=== PATIENT | female | born 1990 | race Caucasian/White ===

== ENCOUNTER 2019-10-31 20:45 | Outpatient (REF) | payer MEDICAID, SELFPAY ==
[2019-10-31 21:12] LABS: Anion Gap 8.7 mmol/L (3-11); BUN 12 mg/dL (7-18); CO2 27.3 mmol/L (21.0-32.0); CREATININE 0.77 mg/dL (0.55-1.02); Calcium 8.5 mg/dL (8.5-10.1); Calculated LDL 97 mg/dL (<100); Chloride 103 mmol/L (98-107); Cholesterol 171 mg/dL (<200); Glucose 90 mg/dL (74-106); HDL Cholesterol 69 mg/dL (40-60); Potassium 4.5 mmol/L (3.5-5.1); Sodium 139 mmol/L (136-145); Triglyceride 28 mg/dL (<150)
== END 2019-10-31 21:05 ==
LOC: NCHCN 20:45
PROVIDERS: Visit Provider Nurse Practitioner Family
DX: R07.89 Other chest pain (principal)
CPT/HCPCS: 80048; 80061

== ENCOUNTER 2020-01-29 15:40 | Outpatient (REF) | payer MEDICAID, SELFPAY ==
[2020-01-29 21:25] LABS: TSH (W/Ref FT4) 2.37 uIU/mL (0.36-3.74)
== END 2020-01-29 16:00 ==
LOC: NCHCN 15:40
PROVIDERS: Visit Provider Nurse Practitioner Family
DX: R63.5 Abnormal weight gain (principal)
CPT/HCPCS: 84443

== ENCOUNTER 2022-01-22 10:00 | Emergency (ER) | payer MEDICAID, SELFPAY ==
[2022-01-22] VITALS (28 sets, daily range): BP systolic 99–165; BP diastolic 61–111; PULSE 67–103; RESP 11–23; TEMP 36.1; O2SAT 95–100
--- NOTE | 2022-01-22 10:00 | RT.EKG_ITS ---
APPROVED REPORT Exam: Resting ECG Reason for Exam: chest pain Patient Location: E HR:79 bpm ECG Measurements Heart Rate 79 AXIS HI 143 P 46 QRSd 84 QRS 35 QT 378 T 43 QTc 428 Conclusion Sinus rhythm...normal P axis, V-rate 60- 99 Atrial premature complexes...SV complexes w/ short R-R intvls
--- NOTE | 2022-01-22 10:15 | DI.RAD_ITS ---
Exam(s) XR CHEST 2V PA LATERAL EXAM: XR CHEST 2V PA LATERAL CLINICAL HISTORY: chest pain TECHNIQUE: 2D digital imaging was performed of the chest. Two images were obtained. PA and lateral views were obtained. COMPARISON: No exams were available for comparison FINDINGS: MEDIASTINUM: Normal. HEART: Normal. PULMONARY VASCULATURE: Normal. LUNGS: Clear. PLEURAL SPACE: No pleural effusion or pneumothorax. BONE:Within normal limits for the patient's age. OTHER FINDINGS:Normal. IMPRESSION: No acute pulmonary findings. DATA REPOSITORY: RADIATION DOSE DELIVERED:
--- NOTE | 2022-01-22 10:21 | W.ED.GENAD ---
Discharge Plan Disposition Patient Disposition: HOME Condition: Improving Discharge Details Clinical Impression: Chest pain Primary Care Provider: None,None ED Provider: Jamey Ford Home Meds and New Rx's Prescriptions: Continued Multi Vitamin 9 mg iron/15 mL Liquid PO Discharge Instructions Instructions: Chest Pain (ED) Additional Instructions: Work-up in the ER does not reveal any obvious emergent process. Please watch for new or worsening symptoms and return to the ER for any concerns. I have placed you on our care management list to help expedite outpatient primary care provider. Given that this is now the second episode that she has had in approximately 2 years, I believe that an outpatient evaluation including stress test, echocardiogram, Holter monitor, etc. may be indicated for further evaluation of your ongoing symptoms. Medical Decision Making This is a 31-year-old female who reports chest pain substernal and left-sided that radiated to her neck and left shoulder associated with bilateral hand paresthesias that began around 430 this morning. She states that all pain has resolved and her only current symptoms are mild but improving bilateral hand paresthesias. She denies any significant past medical history. Reports a similar episode a couple of years ago, seen in the ER and subsequently discharged. She does not have a primary care provider. Clinically she appears well, nontoxic. Plan is to initiate a cardiac work-up including D-dimer, will provide a single full dose of aspirin. Patient is agreeable to this plan Initial laboratory values are unremarkable for any obvious emergent process. D-dimer of 229, will not pursue CTA of the chest. Troponin less than 50, TSH 3.22, urinalysis unremarkable. Patient made aware of her results. She states that she had 1 fleeting episode of chest pressure and felt like her heart skips a beat. Reports that her right hand paresthesias has resolved completely and her left hand paresthesias has almost completely resolved. She is agreeable to awaiting a delta troponin. Delta troponin remains less than 50. Repeat EKG at 1333, please see official report by Dr. Willis. Sinus arrhythmia, ventricular of 75. No STEMI. She reports that she did have another fleeting sensation of chest pressure but it has since resolved and she is currently asymptomatic. All hand paresthesias has resolved as well. Patient is low risk and does not require hospitalization but I will set her up with our healthcare prof to help expedite outpatient primary care follow-up. She does not have a local PCP. We did discuss that outpatient echo, stress test, Holter monitor, etc. may be indicated for further evaluation of her symptoms. Strict discharge and return precautions were provided. Patient understands, is agreeable to this plan, and has no additional questions or concerns upon discharge. This documentation was generated using [employer] system, please disregard any oddities of phrase or misspellings. Medical Records Medical records reviewed: Yes I reviewed the patient's medical records. Imaging Data Radiologic Study: Attestation: I personally reviewed and interpreted this imaging study as follows: Imaging: X-Ray Radiologist's impression: EXAM: XR CHEST 2V PA LATERAL CLINICAL HISTORY: chest pain TECHNIQUE: 2D digital imaging was performed of the chest. Two images were obtained. PA and lateral views were obtained. COMPARISON: No exams were available for comparison FINDINGS: MEDIASTINUM: Normal. HEART: Normal. PULMONARY VASCULATURE: Normal. LUNGS: Clear. PLEURAL SPACE: No pleural effusion or pneumothorax. BONE:Within normal limits for the patient's age. OTHER FINDINGS:Normal. IMPRESSION: No acute pulmonary findings. Lab Data Lab results reviewed: Yes I reviewed the patient's lab results. Labs: Laboratory Tests Range/Units 01/22/22 01/22/22 01/22/22 10:29 10:29 10:29 WBC (4.4-10.8) 10^3/uL 8.44 RBC (3.93-5.22) 10^6/uL 4.86 Hgb (11.2-15.7) g/dL 13.1 Hct (36.0-46.0) % 40.2 MCV (80-95) fL 83 MCH (27.0-33.0) pg 27.0 MCHC (32.0-36.0) % 32.6 RDW (11.7-14.6) % 13.2 Plt Count (130-400) 10^3/uL 429 H MPV (8.0-11.0) fL 9.5 Immature Gran % 0.2 Neutrophils % 71.8 Lymphocytes % 19.2 Monocytes % 7.5 Eosinophils % 0.6 Basophils % 0.7 Nucleated RBC % (0.0-0.3) % 0.0 Absolute Neutrophils (1.2-6.7) 10^3/uL 6.06 Absolute Lymphocytes (1.2-3.4) 10^3/uL 1.62 Absolute Monocytes (0.1-0.8) 10^3/uL 0.63 Absolute Eosinophils (0.0-0.7) 10^3/uL 0.05 Absolute Basophils (0.0-0.2) 10^3/uL 0.06 PT (9.3-11.0) sec 10.0 INR (0.9-1.1) 1.0 APTT (21.0-27.5) sec 24.2 D-Dimer (<500) ng/mlFEU 229 Sodium (136-145) mmol/L 138 Potassium (3.5-5.1) mmol/L 3.9 Chloride (98-107) mmol/L 102 Carbon Dioxide (21.0-32.0) mmol/L 28.5 Anion Gap (3-11) mmol/L 7.5 BUN (7-18) mg/dL 12 Creatinine (0.55-1.02) mg/dL 0.7 Estimated GFR/1.73 m2 (mL/min/1.73m2) >= 60.00 Glucose (74-106) mg/dL 104 Calcium (8.5-10.1) mg/dL 8.8 Magnesium (1.8-2.4) mg/dL 1.7 L Total Bilirubin (0.2-1.0) mg/dL 1.0 AST (15-37) U/L 13 L ALT (14-59) U/L 22 Alkaline Phosphatase (46-116) U/L 71 Troponin I (<or=60) ng/L < 50 Total Protein (6.4-8.2) g/dL 7.8 Albumin (3.4-5.0) g/dL 3.9 TSH (0.36-3.74) uIU/mL 3.22 Urine Color (Yellow) Urine Clarity (Clear) Urine pH (5-8) Ur Specific [place] (1.005-1.025) Urine Protein (Negative) mg/dL Urine Ketones (Negative) mg/dL Urine Blood (Negative) Urine Nitrite (Negative) Urine Bilirubin (Negative) Urine Urobilinogen (Up TO 0.2) EU/dL Ur Leukocyte Esterase (Negative) Urine Glucose (Negative) mg/dL Range/Units 01/22/22 01/22/22 01/22/22 10:29 10:55 13:27 WBC (4.4-10.8) 10^3/uL RBC (3.93-5.22) 10^6/uL Hgb (11.2-15.7) g/dL Hct (36.0-46.0) % MCV (80-95) fL MCH (27.0-33.0) pg MCHC (32.0-36.0) % RDW (11.7-14.6) % Plt Count (130-400) 10^3/uL MPV (8.0-11.0) fL Immature Gran % Neutrophils % Lymphocytes % Monocytes % Eosinophils % Basophils % Nucleated RBC % (0.0-0.3) % Absolute Neutrophils (1.2-6.7) 10^3/uL Absolute Lymphocytes (1.2-3.4) 10^3/uL Absolute Monocytes (0.1-0.8) 10^3/uL Absolute Eosinophils (0.0-0.7) 10^3/uL Absolute Basophils (0.0-0.2) 10^3/uL PT (9.3-11.0) sec INR (0.9-1.1) APTT (21.0-27.5) sec D-Dimer (<500) ng/mlFEU Sodium (136-145) mmol/L Potassium (3.5-5.1) mmol/L Chloride (98-107) mmol/L Carbon Dioxide (21.0-32.0) mmol/L Anion Gap (3-11) mmol/L BUN (7-18) mg/dL Creatinine (0.55-1.02) mg/dL Estimated GFR/1.73 m2 (mL/min/1.73m2) Glucose (74-106) mg/dL Calcium (8.5-10.1) mg/dL Magnesium (1.8-2.4) mg/dL Total Bilirubin (0.2-1.0) mg/dL AST (15-37) U/L ALT (14-59) U/L Alkaline Phosphatase (46-116) U/L Troponin I (<or=60) ng/L < 50 Total Protein (6.4-8.2) g/dL Albumin (3.4-5.0) g/dL TSH (0.36-3.74) uIU/mL Cancelled Urine Color (Yellow) Yellow Urine Clarity (Clear) Clear Urine pH (5-8) 7.0 Ur Specific [place] (1.005-1.025) 1.020 Urine Protein (Negative) mg/dL Negative Urine Ketones (Negative) mg/dL Negative Urine Blood (Negative) Negative Urine Nitrite (Negative) Negative Urine Bilirubin (Negative) Negative Urine Urobilinogen (Up TO 0.2) EU/dL 0.2 Ur Leukocyte Esterase (Negative) Negative Urine Glucose (Negative) mg/dL Negative ECG Data Attestation: I personally reviewed and interpreted this ECG (s) as follows: Interpretation: Please see official report by Dr. Willis. Sinus rhythm, ventricular rate of 79. Atrial premature complexes. No STEMI. HPI General Mode of arrival: ambulatory. Date/Time Provider Initiated Documentation: 01/22/22 10:10. Limitations to Documentation: no limitations. Information obtained by: patient. HPI Narrative: This is a 31-year-old female, non-smoker, denies significant past medical history, reports that around 430 this morning she developed some left-sided chest pain, aching, it subsequently radiated to her left arm and neck, associated with tingling in both of her hands so she came to the ER for further evaluation. Upon arrival she reports that the pain in her chest, neck, shoulder have all resolved completely that the paresthesias in her fingers are resolving. Patient states that she had a similar episode a couple of years ago and was told it was likely secondary to stress; however, this time she reports no stress. Patient states that the pain resolved on its own, she did not take any [id number] medications today. Denies any radiation of the pain into her abdomen or back. She denies recent illness or trauma. Denies fever, headache, cough, abdominal pain, nausea, vomiting, change in bowel or bladder function the pain or swelling in her legs. Patient reports that at the time of chest pain she did have some mild shortness of breath. Denies any palpitations. He does not have a PCP Related Data Home Medications Medication Instructions Recorded Confirmed multivitamin with minerals-iron ml PO 01/22/22 fumarate 9 mg iron/15 mL oral liquid (Multi Vitamin) Allergies Allergy/AdvReac Type Severity Reaction Status Date / Time No Known Drug Allergies Allergy Unverified 01/22/22 10:17 General Stated Complaint: Chest Pain BENJY: 3 Review of Systems Constitutional Constitutional: Denies fatigue, Denies fever(s), Denies headache(s) and Denies weakness Eyes Eyes: Denies change in vision ENT Ears, Nose, Mouth, and Throat: Denies headache(s) and Reports neck pain (resolved) Cardiovascular Cardiovascular: Reports chest pain and Reports dyspnea Respiratory Respiratory: Denies cough and Reports dyspnea Gastrointestinal Gastrointestinal: Denies abdominal pain, Denies nausea and Denies vomiting Musculoskeletal Musculoskeletal: Reports back pain (Low, chronic), Reports neck pain (resolved), Denies numbness and Denies tingling Integumentary/Breasts Skin/Breast: Denies rash Neurologic Neurologic: Denies headache(s), Denies numbness, Denies tingling and Denies weakness Endocrine Endocrine: Denies fatigue Hematologic/Lymphatic Hematologic/Lymphatic: Denies easy bleeding and Denies easy bruising PFSH All Active Problems (Updated 01/22/22 @ 14:12 by INGRID Lopez) Chest pain (Acute) Family History Other Diabetes Personal history of malignant neoplasm Social History Smoking/Tobacco Use Status: Never Smoking risk assessment performed?: Yes Alcohol Intake: current Alcohol Intake frequency: holidays/special occasions only Drug use: Never Do you feel safe at home: Yes Do you feel safe in your relationship?: Yes Exam Const General: cooperative, healthy appearing, comfortable and no acute distress Orientation: alert and awake [facility] Head: normal to inspection, normocephalic and atraumatic Face and sinus: normal facial exam Mouth: moist mucous membranes Eyes General: appearance normal, both eyes and all related structures Conjunctivae: conjunctivae normal Neck Neck: normal visual inspection, full ROM, no meningeal signs, trachea midline, supple and nontender Chest Chest: normal inspection of the chest and normal palpation of entire chest wall Resp Effort & Inspection: normal respiratory effort and able to speak in complete sentences Auscultation: clear to auscultation bilaterally Cardio Rate: regular rate Rhythm: regular rhythm GI Inspection: normal to inspection Palpation: soft, not firm, no guarding, no pulsatile masses and nontender Back/Spine/Pelvis Back: No back tenderness Skin General skin exam: no rashes or lesions noted Neuro General: patient alert, patient awake, moves all extremities and no focal motor deficits Cognition: normal cognition Speech: speech normal Gait: normal gait Motor: muscle tone normal throughout Sensory Exam: no sensory deficits noted Extrem General: normal to inspection, full ROM, capillary refill normal, no pedal edema and no calf tenderness Psych Appearance: grossly normal Mental Status: mental status grossly normal Course Vital Signs Vital signs: Vital Signs Temperature 36.1 C L 01/22/22 10:13 Pulse 82 01/22/22 10:13 Respiratory Rate 14 01/22/22 10:13 Blood Pressure 165/89 H 01/22/22 10:13 Pulse Oximetry 100 01/22/22 10:13 Temperature 36.1 C L 01/22/22 10:13 Temperature Source Temporal Artery Scan 01/22/22 10:13 Pulse 82 01/22/22 10:13 Respiratory Rate 14 01/22/22 10:13 Respiratory Effort Non-Labored 01/22/22 10:18 Blood Pressure 165/89 H 01/22/22 10:13 Blood Pressure Position Supine 01/22/22 10:13 Pulse Oximetry 100 01/22/22 10:13 Oxygen Delivery Method Room Air 01/22/22 10:13 Oxygen Flow Rate 0 01/22/22 10:13 Pain Level 6 01/22/22 10:13 PAWSS Have you Been Recently Intoxicated or Drunk Within the Last 30 days?: No Have you Ever Experienced Previous Episodes of Alcohol Withdrawal?: No Have you ever Experienced Withdrawal Seizures?: No Have you ever Experienced Delirium Tremens(DT)s?: No Have you ever undergone Alcohol Rehabilitation Treatment (i.e, inpt ot outpatient treatment programs)?: No Have you ever Experienced Blackouts?: No Have you ever Combined Alcohol with other Downers within the last 90 days?: No Have you ever Combined Alcohol with any other Substance of Abuse during the last 90 days?: No Positive Blood Alcohol level on Presentation? [PCS.BAL]: No Evidence of Increased Autonomic Activity (i.e. HR>120, tremor, sweating, agitation, nausea)?: No Result: 0
[2022-01-22] MEDS: Aspirin 81 MG CHEW 324 MG CH (10:35)
[2022-01-22 10:37] LABS: Abs Immature Grans 0.02 10^3/uL (0.0-0.06); Absolute Basophil Count 0.06 10^3/uL (0.0-0.2); Absolute Eosinophil Count 0.05 10^3/uL (0.0-0.7); Absolute Lymphocyte Count 1.62 10^3/uL (1.2-3.4); Absolute Monocyte Count 0.63 10^3/uL (0.1-0.8); Absolute Neutrophil Count 6.06 10^3/uL (1.2-6.7); Basophils % 0.7; Eosinophils % 0.6; HCT 40.2 % (36.0-46.0); HGB 13.1 g/dL (11.2-15.7); Immature Grans % 0.2; Lymphocytes % 19.2; MCHC 32.6 % (32.0-36.0); MCV 83 fL (80-95); MPV 9.5 fL (8.0-11.0); Monocytes % 7.5; Neutrophils % 71.8; Platelet Count 429 10^3/uL (130-400); RBC 4.86 10^6/uL (3.93-5.22); RDW 13.2 % (11.7-14.6); RDW-SD 39.8 fL; WBC 8.44 10^3/uL (4.4-10.8)
[2022-01-22 10:54] LABS: PTT Activated 24.2 sec (21.0-27.5)
[2022-01-22] MEDS: Normal Saline 1,000 ML 125 ML IV (10:58)
--- NOTE | 2022-01-22 10:58 | NUR.NOTE ---
Nursing Note: Pt info given to care management to establish care and be seen HUBERT for chest pain. Hailey, ED
[2022-01-22 11:05] LABS: ALT 22 U/L (14-59); AST 13 U/L (15-37); Albumin 3.9 g/dL (3.4-5.0); Alkaline Phosphatase 71 U/L (46-116); Anion Gap 7.5 mmol/L (3-11); BUN 12 mg/dL (7-18); CO2 28.5 mmol/L (21.0-32.0); CREATININE 0.7 mg/dL (0.55-1.02); Calcium 8.8 mg/dL (8.5-10.1); Chloride 102 mmol/L (98-107); Glucose 104 mg/dL (74-106); Magnesium 1.7 mg/dL (1.8-2.4); Potassium 3.9 mmol/L (3.5-5.1); Sodium 138 mmol/L (136-145); TSH (W/Ref FT4) 3.22 uIU/mL (0.36-3.74); Total Protein 7.8 g/dL (6.4-8.2); Troponin I < 50 ng/L (<or=60)
[2022-01-22 11:10] LABS: D-Dimer 229 ng/mlFEU (<500)
[2022-01-22 11:10] LABS: Bilirubin Negative (Negative); Blood Negative (Negative); Clarity Clear (Clear); Glucose Negative (Negative); Ketones Negative (Negative); Leukocyte Esterase Negative (Negative); Nitrite Negative (Negative); Urobilinogen 0.2 EU/dL (Up TO 0.2)
--- NOTE | 2022-01-22 13:15 | RT.EKG_ITS ---
APPROVED REPORT Exam: Resting ECG Reason for Exam: chest pain Patient Location: E HR:75 bpm ECG Measurements Heart Rate 75 AXIS MI 148 P 34 QRSd 84 QRS 25 QT 395 T 36 QTc 442 Conclusion Sinus arrhythmia...V-rate 66- 90, variation>10%
[2022-01-22 13:58] LABS: Troponin I < 50 ng/L (<or=60)
--- NOTE | 2022-01-25 09:51 | PDOC.ERCMACT ---
- If Service Date Differs Date of service: 01/25/22 Time of Service: 09:51 Care Management Activity Note Lina is seen in the ED for chest pain. CM receives a request to assist Lina in establishing care with a PCP but a review of her chart reveals that she is already established at the [facility]. CM calls the [facility] and is advised that Lina is assigned to SEAN Castorena. CM faxes the ED Visit note to the [facility] for their review and requests they outreach to Lina to schedule a follow up appointment betty.
== END 2022-01-22 14:20 | disposition home or self-care (01) ==
PROVIDERS: Emergency Provider Physician Assistant; PCP Nurse Practitioner Family
DX: R07.2 Precordial pain (principal); I49.8 Other specified cardiac arrhythmias; R20.2 Paresthesia of skin
CPT/HCPCS: 36415; 80053; 81025; 93005; 96360; 96361; 99284; 71046; 81003; 83735; 84443; 84484; 85025; 85379; 85610; 85730; 93010; 99285

== ENCOUNTER 2024-12-05 17:58 | Outpatient (REF) | payer MEDICAID, SELFPAY | END 2024-12-05 17:59 | disposition home or self-care (01) | LOC: NCHCN 17:58 | PROVIDERS: PCP Nurse Practitioner Family; Visit Provider Nurse Practitioner Family | DX: R30.0 Dysuria (principal); R82.89 Other abnormal findings on cytological and histological examination of urine; B96.29 Other Escherichia coli [E. coli] as the cause of diseases classified elsewhere | CPT/HCPCS: 87077; 87086; 87186 ==